=== PATIENT | female | born 1970 ===

== ENCOUNTER 2020-06-05 17:18 | Inpatient (IN) | payer OTHER ==
[~2020-06-05] VITALS: Ht 152.4 cm; Wt 86.2 kg
--- NOTE | 2020-06-05 17:45 | NUR ---
BIB EMS FOR C/O SOB AND CP. CP AND SOB STARTED AT 0530 TODAY. PT STATES SHE WAS [place] THE [place] WHEN PAIN STARTED. TOOK 2 FLIGHTS TO [place] THEN ONCE ARRIVED TO [facility] 911 WAS ACTIVATED. FOUND TO HAVE O2 SATS 80% RA PLACED ON 4L NC SATING 84% THEN PLACED ON 15 L NON-REBREATHER SATING 98%. HX 3 STROKES AND PULM EDEMA. PT RESTING ON GURNEY. NON-REBREATHER AND MONITORS IN PLACE. 2ND PIV INITIATED. BLOOD DRAWN. GARRY VOGT AT BEDSIDE.
--- NOTE | 2020-06-05 17:58 | NUR ---
SPOKE W/ OLGA, RT IN REGARDS TO PT BEING AN OPTIFLOW CANDIDATE. RT WILL COME SEE PT.
[2020-06-05] MEDS ORDERED: ACETAMINOPHEN 500 MG TABLET ONE (17:59)
[2020-06-05] MEDS ORDERED: SODIUM CHLORIDE 0.9% 1,000 ML IV ONE (18:00)
[2020-06-05] MEDS ORDERED: SODIUM CHLORIDE FLUSH 10ML SYR IVF ONE (18:00)
[2020-06-05] MEDS ORDERED: ACETAMINOPHEN 500 MG TABLET PO ONE (18:00)
[2020-06-05 18:02] LABS: MEAN CORPUSCULAR HEMOGLOBIN 28.3 pg (27.0-34.8); MEAN CORPUSCULAR HGB CONC 32.6 g/dL (32.4-35.8); MEAN PLATELET VOLUME 7.2 fL (7.4-10.4); PLATELET COUNT 281 x10^3/uL (130-400); RED BLOOD COUNT 4.89 x10^6/uL (3.82-5.3); RED CELL DISTRIBUTION WIDTH 15.9 % (9.6-15.2)
[2020-06-05 18:12] LABS: ALANINE AMINOTRANSFERASE 14 U/L (12-78); ALBUMIN 3.4 g/dL (3.4-5.0); ANION GAP 6 mmol/L (5-15); CALCIUM 8.6 mg/dL (8.5-10.1); CHLORIDE 105 mmol/L (98-107)
[2020-06-05 18:16] LABS: ALKALINE PHOSPHATASE 123 U/L (45-117); BILIRUBIN,TOTAL 0.6 mg/dL (0.2-1.0); TOTAL PROTEIN 8.6 g/dL (6.4-8.2); TROPONIN I < 0.015 ng/mL (0.000-0.045)
[2020-06-05 18:20] LABS: INTERNATIONAL NORMALIZED RATIO 1.03 (0.93-1.1); PROTHROMBIN TIME 10.9 Seconds (9.6-11.5)
[2020-06-05 18:24] LABS: MD YES
[2020-06-05 18:26] LABS: <PLATELET ESTIMATE> ADEQUATE; BAND#(MANUAL) 2.27 x10^3/uL; BANDS%(MANUAL) 11 % (0-7); BASOS#(MANUAL) 0.21 x10^3/uL (0-0.1); BASOS% (MANUAL) 1 % (0-1); LYMPH#(MANUAL) 1.24 x10^3/uL (1-3.4); LYMPHS% (MANUAL) 6 % (22-44); MONOS#(MANUAL) 0.62 x10^3/uL (0.3-2.7); MONOS% (MANUAL) 3 % (2-9); SEG#(MANUAL) 16.27 x10^3/uL (1.8-6.8); SEGS% (MANUAL) 79 % (42-75)
[2020-06-05 18:27] LABS: <PLT MORPHOLOGY> NORMAL PLT MORPH; <RBC MORPHOLOGY> NORMAL
[2020-06-05 18:28] LABS: PMNS WITH VACUOLES 1+
--- NOTE | 2020-06-05 18:51 | NUR ---
PT RESTING ON GURNEY. AWARE OF POC FOR ADMIT AND LAB WORK. RT OLGA STATES ONCE CXR READ WILL DECIDE IF PT WILL BE ON OPTIFLOW OR CPAP. Addendum: 06/05/20 at 1852 by BNICHOLS BPAP*
--- NOTE | 2020-06-05 19:02 | NUR ---
BEDSIDE REPORT FROM EVAN CERRATO
--- NOTE | 2020-06-05 19:06 | NUR ---
REPORT GIVEN TO BILLY CARVER RN.
[2020-06-05] MEDS ORDERED: MORPHINE SULFATE 4 MG/ML, 1ML ONE ×2 (19:18→21:18)
[2020-06-05] MEDS ORDERED: CEFTRIAXONE PMX 1GM/50ML 50 ML ONE (19:22)
[2020-06-05] MEDS ORDERED: ONDANSETRON 2MG/ML, 2ML IVPush ONE (19:30)
[2020-06-05] MEDS ORDERED: AZITHROMYCIN 500 MG in SODIUM CHLORIDE 0.9% 250 ML IV ONE (19:30)
[2020-06-05] MEDS ORDERED: CEFTRIAXONE PMX 1GM/50ML 50 ML IV ONE (19:30)
[2020-06-05] MEDS: MORPHINE SULFATE 4 MG/ML, 1ML IVPush PRN ×2 (19:31→21:41)
[2020-06-05] MEDS ORDERED: FURO80TA77 PO (19:46)
[2020-06-05] MEDS ORDERED: CLON0.2T PO (19:46)
[2020-06-05] MEDS ORDERED: ASPI-515 PO (19:46)
[2020-06-05] MEDS ORDERED: WELLBUTRIN (19:46)
[2020-06-05] MEDS ORDERED: PARO40TA3 PO (19:46)
[2020-06-05] MEDS ORDERED: BLOOD THINNER (19:46)
--- NOTE | 2020-06-05 20:04 | NUR ---
PT RESTING ON GURNEY. PT STILL WITH INCREASED WORK OF BREATHING BUT A+OX4 AND SPEAKING IN PARTIAL SENTENCES. O2 DECREASED TO 6 LITERS WITH O2 SATS AT 100%. PT COMPLAINING OF PAIN IN THE LEFT EAR. MEDICATED FOR PAIN PER EMAR WITH SOME RELIEF.
[2020-06-05] MEDS ORDERED: ABILIFY (20:10)
[2020-06-05] MEDS ORDERED: GUAIFENESIN/DM 200-20MG, 10ML UDC PO PRN (20:30)
[2020-06-05] MEDS ORDERED: FUROSEMIDE 100 MG/10 ML IV SCH (20:30)
[2020-06-05] MEDS ORDERED: ONDANSETRON 2MG/ML, 2ML IVPush PRN (20:30)
[2020-06-05] MEDS ORDERED: DOCUSATE 100 MG CAPSULE PO PRN (20:30)
--- NOTE | 2020-06-05 20:31 | NUR ---
PT REPORTS THAT SHE TOOK 80 MG PO OF LASIX DISPATCHER CHIEF OIL
[2020-06-05] MEDS ORDERED: FUROSEMIDE 20 MG/2 ML ONE (20:43)
[2020-06-05] MEDS ORDERED: GABA300C PO (21:15)
[2020-06-05] MEDS ORDERED: CLOP75TA PO (21:15)
[2020-06-05] MEDS ORDERED: QUET100T PO (21:15)
[2020-06-05] MEDS ORDERED: ATOR-2 PO (21:15)
[2020-06-05] MEDS ORDERED: CARI1.5C2 PO (21:15)
[2020-06-05] MEDS ORDERED: BUPR300T94 PO (21:15)
[2020-06-05] MEDS ORDERED: LAMO25TB7 PO (21:15)
[2020-06-05] MEDS ORDERED: ARIP10TA33 PO (21:15)
[2020-06-05] MEDS ORDERED: HEPARIN 5,000 UNITS/ML, 1ML ONE (21:18)
[2020-06-05] MEDS ORDERED: POTASSIUM CHLORIDE 20 MEQ TAB.ER.PRT ONE (21:18)
[2020-06-05 21:24] LABS: C-REACTIVE PROTEIN, QUANT 3.26 mg/dL (0.02-0.49)
[2020-06-05] MEDS ORDERED: FUROSEMIDE 20 MG/2 ML IV ONE (21:30)
[2020-06-05] MEDS: POTASSIUM CHLORIDE 20 MEQ TAB.ER.PRT PO SCH (21:40)
[2020-06-05] MEDS: HEPARIN 5,000 UNITS/ML, 1ML SQ SCH (21:40)
[2020-06-05 21:41] LABS: D-DIMER (DIC) 2.51 ug/mlFEU (0.00-0.52); PROTIME 11.2 Seconds (9.6-11.5)
--- NOTE | 2020-06-05 22:15 | NUR ---
pt provided hosptial bed. pt medicated with hospitalist orders per emar. pt still with complaints of pain in her ear and given morphine for pain, with effect. pt provided meal from coffee cart. pt with improved work of breathing and oxigen delivery device downgraded to oximask at 6L. pt was given lasix and due to her being a high fall risk, pt provided purewick and educated on its purpose and use. purewick in place. I will monitor and document output.
[2020-06-05] MEDS ORDERED: GUAIFENESIN/DM 200-20MG, 10ML UDC ONE (22:59)
--- NOTE | 2020-06-05 23:26 | NUR ---
pt resting on hospital bed. pt reports feeling much better. medicated fei brasher to see if it helps pain in her ear. O2 downgraded to nasal cannula at 3L. no requests a this time.
--- NOTE | 2020-06-06 02:13 | NUR ---
URINE CONTAINER EMPTIED AND NEW ONE PLACED. NEW PUREWICK PLACED.
--- NOTE | 2020-06-06 03:10 | NUR ---
REPORT FROM EVAN CARVER. FIRST CONTACT PT PLAYING GAMES ON PHONE, SPEAKING FULL SENTENCES IN NAD. VSS.
[2020-06-06] MEDS ORDERED: HEPARIN 5,000 UNITS/ML, 1ML ONE ×2 (04:08→12:53)
[2020-06-06] MEDS: HEPARIN 5,000 UNITS/ML, 1ML SQ SCH ×2 (04:11→12:58)
--- NOTE | 2020-06-06 04:18 | NUR ---
PT AWAKE, TALKING ON PHONE TO FAMILY. SPEAKS FULL SENTENCES, VSS. SNACKS PROVIDED. WILL CONTINUE TO MONITOR.
[2020-06-06 05:31] LABS: ALANINE AMINOTRANSFERASE 12 U/L (12-78); ANION GAP 4 mmol/L (5-15); BASOPHILS % (AUTO) 1 % (0-1); CALCIUM 8.8 mg/dL (8.5-10.1); CHLORIDE 108 mmol/L (98-107); CREATININE 0.83 mg/dL (0.55-1.02); EOSINOPHILS % (AUTO) 1 % (1-7); LYMPHOCYTES % (AUTO) 16 % (22-44); MEAN CORPUSCULAR HEMOGLOBIN 28.6 pg (27.0-34.8); MEAN CORPUSCULAR HGB CONC 32.6 g/dL (32.4-35.8); MEAN PLATELET VOLUME 7.3 fL (7.4-10.4); MONOCYTES % (AUTO) 4 % (2-9); NEUTROPHILS % (AUTO) 78 % (42-75); PLATELET COUNT 255 x10^3/uL (130-400); RED BLOOD COUNT 4.47 x10^6/uL (3.82-5.3); RED CELL DISTRIBUTION WIDTH 15.6 % (9.6-15.2)
[2020-06-06 05:33] LABS: ALKALINE PHOSPHATASE 104 U/L (45-117); BILIRUBIN,TOTAL 0.6 mg/dL (0.2-1.0); TOTAL PROTEIN 7.8 g/dL (6.4-8.2)
[2020-06-06 05:34] LABS: MD NO
--- NOTE | 2020-06-06 05:50 | NUR ---
PT MOVED TO 31 WITH ALL BELONGINGS. PT VSS, EATING SNACKS ASKING FOR BREAKFAST. PT USING PURWICK REQUIRING ASSISTANCE TO PLACE PURWICK.
[2020-06-06 08:00] VITALS: BP 137/75
[2020-06-06] MEDS ORDERED: CARIPRAZINE 1.5 MG CAP PO SCH (09:00)
[2020-06-06] MEDS: NICOTINE 14MG/24 HR PATCH.TD24 TD SCH (09:00)
[2020-06-06] MEDS ORDERED: FUROSEMIDE 40 MG/4 ML ONE (09:33)
[2020-06-06] MEDS ORDERED: ACETAMINOPHEN 325 MG TABLET ONE (09:33)
[2020-06-06] MEDS: ACETAMINOPHEN 325 MG TABLET PO PRN (09:54)
[2020-06-06] MEDS: FUROSEMIDE 40 MG/4 ML IV SCH (09:55)
[2020-06-06] MEDS ORDERED: NICOTINE 14MG/24 HR PATCH.TD24 ONE (12:52)
[2020-06-06] MEDS ORDERED: ASPIRIN 81 MG TABLET CHEW ONE (12:53)
[2020-06-06] MEDS ORDERED: POTASSIUM CHLORIDE 20 MEQ TAB.ER.PRT ONE (12:53)
[2020-06-06] MEDS ORDERED: QUETIAPINE 100MG TABLET ONE (12:53)
[2020-06-06] MEDS ORDERED: CLOPIDOGREL 75 MG TABLET ONE (12:53)
[2020-06-06] MEDS ORDERED: GABAPENTIN 300 MG CAPSULE ONE ×2 (12:54→16:30)
[2020-06-06] MEDS: LAMOTRIGINE 25 MG TABLET PO SCH ×2 (12:57→20:36)
[2020-06-06] MEDS: ASPIRIN 81 MG TABLET EC PO SCH (12:57)
[2020-06-06] MEDS: PAROXETINE 20 MG TABLET PO SCH (12:58)
[2020-06-06] MEDS: POTASSIUM CHLORIDE 20 MEQ TAB.ER.PRT PO SCH (12:58)
[2020-06-06] MEDS: GABAPENTIN 300 MG CAPSULE PO SCH ×3 (12:58→20:36)
[2020-06-06] MEDS: CLOPIDOGREL 75 MG TABLET PO SCH (12:58)
[2020-06-06] MEDS: QUETIAPINE 100MG TABLET PO SCH (12:59)
--- NOTE | 2020-06-06 13:13 | NUR ---
TASK RN: SPOKE WITH SPOKE TO DR. CARUSO: -TIRE ASSEMBLER CONCERNED ABOUT ADMIN 40 PO POTASSIUM (AM K OF 3.9 BUT DID HAVE LASIX ADMINISTERED THIS AM) DR. CARUSO WOULD LIKE POTASSIUM ADMINISTERED REGARDLESS - AFTER PERMISSION FROM PATIENT TO ADMIN WELLBUTRIN SR (IN FORMULARY) INSTEAD OF PATIENT WELLBUTRIN XL (NOT ON FORMULARY) DR. CARUSO AGREEABLE -NOT ABLE TO ADMIN VAYLAR (NOT ON FORMULARY) AND PATIENT UNABLE TO HAVE HER HOME SUPPLY DELIVER [TIRE ASSEMBLER TO WORK ON FINDING SOMEONE TO BRING IT TO HER] DR. CARUSO WOULD LIKE HOME MEDS BE ADMINISTERED/DOES NOT HAVE A SIMILIAR MED TO ADMINISTER -TO ORDER TORADOL PRN FOR BACK PAIN
[2020-06-06] MEDS: ARIPIPRAZOLE 10 MG TABLET PO SCH (13:26)
[2020-06-06] MEDS: BUPROPION SR 150 MG TABLET PO SCH (13:35)
--- NOTE | 2020-06-06 13:37 | NUR ---
TASK RN: PLAN TO HOLD MAGNOLIAYLAR TOTALLY (SHOULD NOT HAVE A PROBLEM WITHDRAWING PER PSYCH ADULT CARE PROVIDER SHE IS ALREADY ON SEROQUEL AND ABILIFY) -PLAN TO REFRAIN FROM TORADOL INSTEAD USE LIDOCAINE PATCH FOR BACK PAIN (ON PLAVIX AND ASPIRIN)
[2020-06-06] MEDS ORDERED: LIDODERM 5% PATCH TD ONE ×2 (13:49→14:00)
[2020-06-06 16:00] VITALS: BP 149/88
[2020-06-06] MEDS ORDERED: GABAPENTIN 400 MG CAPSULE ONE (16:30)
[2020-06-06] MEDS: ENOXAPARIN 100 MG/ML SQ SCH (16:38)
--- NOTE | 2020-06-06 17:46 | NUR ---
REPORT TO ROBERTA
[2020-06-06 18:41] VITALS: BP 120/60
[2020-06-06] MEDS ORDERED: CEFTRIAXONE PMX 1GM/50ML 50 ML IV SCH (19:30)
[2020-06-06] MEDS ORDERED: AZITHROMYCIN 500 MG in SODIUM CHLORIDE 0.9% 250 ML IV SCH (19:30)
[2020-06-06] MEDS ORDERED: ATORVASTATIN 80 MG TABLET PO SCH (21:00)
[2020-06-07 00:16] VITALS: BP 130/76
[2020-06-07] MEDS: ENOXAPARIN 100 MG/ML SQ SCH (04:00)
[2020-06-07] MEDS ORDERED: LEVO750T6 PO (08:34)
[2020-06-07] MEDS: NICOTINE 14MG/24 HR PATCH.TD24 TD SCH (09:00)
[2020-06-07] MEDS ORDERED: LIDODERM 5% PATCH TD SCH (09:30)
[2020-06-07] MEDS: ACETAMINOPHEN 325 MG TABLET PO PRN (10:02)
[2020-06-07] MEDS: PAROXETINE 20 MG TABLET PO SCH (10:03)
[2020-06-07] MEDS: GABAPENTIN 300 MG CAPSULE PO SCH (10:03)
[2020-06-07] MEDS: BUPROPION SR 150 MG TABLET PO SCH (10:03)
[2020-06-07] MEDS: ARIPIPRAZOLE 10 MG TABLET PO SCH (10:03)
[2020-06-07] MEDS: CLOPIDOGREL 75 MG TABLET PO SCH (10:03)
[2020-06-07] MEDS: FUROSEMIDE 40 MG/4 ML IV SCH (10:03)
[2020-06-07] MEDS: POTASSIUM CHLORIDE 20 MEQ TAB.ER.PRT PO SCH (10:03)
[2020-06-07] MEDS: QUETIAPINE 100MG TABLET PO SCH (10:04)
[2020-06-07] MEDS: LAMOTRIGINE 25 MG TABLET PO SCH (10:04)
[2020-06-07] MEDS: ASPIRIN 81 MG TABLET EC PO SCH (10:04)
[2020-06-07] MEDS ORDERED: ENOXAPARIN 80 MG/0.8 ML SQ SCH (16:00)
== END 2020-06-07 12:46 | disposition home or self-care (01) | DRG 871 ==
LOC: ED 22:46 → EDIP 22:58 → 4EST 06-06 18:10
PROVIDERS: ADMIT Family Medicine; ATTEND Hospitalist
DX: A41.89 Other specified sepsis (principal); I50.31 Acute diastolic (congestive) heart failure; J12.89 Other viral pneumonia; J96.01 Acute respiratory failure with hypoxia; R65.20 Severe sepsis without septic shock; F17.210 Nicotine dependence, cigarettes, uncomplicated; I11.0 Hypertensive heart disease with heart failure; Z20.828 Contact with and (suspected) exposure to other viral communicable diseases; M19.90 Unspecified osteoarthritis, unspecified site; D72.829 Elevated white blood cell count, unspecified; Z86.73 Personal history of transient ischemic attack (TIA), and cerebral infarction without residual deficits; Z79.899 Other long term (current) drug therapy; Z79.01 Long term (current) use of anticoagulants; Z79.82 Long term (current) use of aspirin
CPT/HCPCS: 36415; 71045; 80053; 82728; 83605; 83615; 83880; 84145; 84484; 85025; 85049; 85379; 85384; 85610; 85730; 86140; 87040; 87635; 93005; G0378; J0456; J0696; J1644; J1650; J1940; J2270; J7030; J7050